=== PATIENT | female | born 1975 | race Caucasian/White ===

== ENCOUNTER → 2025-01-01 | Outpatient (CLI) | payer OTHER ==
[2025-01-01 15:35] LABS: ALBUMIN 4.5 g/dL (3.5-5.0)
[2025-01-01 15:36] LABS: CALCIUM 9.5 mg/dL (8.3-10.5)
[2025-01-01 15:37] LABS: TOTAL PROTEIN 7.7 g/dL (6.4-8.3)
[2025-01-01 15:39] LABS: TOTAL BILIRUBIN 0.9 mg/dL (0.2-1.2)
== END ==
LOC: LAB 15:17
PROVIDERS: Family Medicine
DX: Z13.220 Encounter for screening for lipoid disorders (principal); Z13.1 Encounter for screening for diabetes mellitus; K91.5 Postcholecystectomy syndrome